=== PATIENT | female | born 1955 ===

== ENCOUNTER 2018-01-14 07:35 | Day surgery (SDC) | payer MEDICARE ==
[2014-10-12 09:08] VITALS: BMI 36.6
--- NOTE | 2018-01-14 08:55 | CP.SDSHP ---
Same Day Surgery H & P - History Proposed Procedure: colonoscopy - Previous Medical/Surgical History Endocrine/Metabolic: Thyroid Disease - Allergies Allergies: Allergies No Known Allergies Allergy (Verified 01/14/18 08:10) - Physical Exam Vital Signs: Vital Signs 01/14/18 07:40 Temperature 97.8 F Pulse Rate 74 Respiratory 16 Rate Blood Pressure 88/64 L O2 Sat by Pulse 100 Oximetry - Date & Time Date: 01/14/18 Time: 08:55 Short Stay Discharge - Short Stay Discharge Admitting Diagnosis/Reason for Visit: SCREENING Disposition: HOME/ ROUTINE
[2018-01-14] MEDS ORDERED: Propofol 10 mg/ml Inj (20 ML) ONE (09:04)
[2018-01-14 09:37] VITALS: TEMP 96.7
[2018-01-14 09:59] VITALS: O2SAT 100
[2018-01-14 10:01] VITALS: RESP 18
[2018-01-14 10:48] VITALS: BP 101/56; PULSE 65
== END 2018-01-14 10:42 | disposition home or self-care (01) ==
LOC: C.ENDO 07:35
PROVIDERS: ATTEND Colon & Rectal Surgery
DX: D12.4 Benign neoplasm of descending colon (principal); Z12.11 Encounter for screening for malignant neoplasm of colon; D12.3 Benign neoplasm of transverse colon
CPT/HCPCS: 45380; 82948; 88305; J2001; J2704